=== PATIENT | male | born 1975 | race Caucasian/White ===

== ENCOUNTER 2022-06-09 06:01 | Emergency (ER) | payer MEDICAID ==
[~2022-06-09] VITALS: Ht 170.2 cm; Wt 72.6 kg
[2022-06-09 06:03] VITALS: BP 156/72
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
[2022-06-09] MEDS ORDERED: SULF1TAB48 PO (06:25)
[2022-06-09] MEDS ORDERED: ACETAMINOPHEN ES 500 MG TABLET ONE (06:26)
[2022-06-09] MEDS ORDERED: ACETAMINOPHEN ES 500 MG TABLET PO ONE (06:30)
--- NOTE | 2022-06-09 06:32 | NUR ---
Patient discharged to home in stable condition. RX Written and verbal after care instructions given. Patient verbalizes understanding of instruction.
== END 2022-06-09 07:05 | disposition home or self-care (01) ==
LOC: ER 06:07
DX: L03.012 Cellulitis of left finger (principal); F17.200 Nicotine dependence, unspecified, uncomplicated